=== PATIENT | female | born 1960 | race African-American/Black ===

== ENCOUNTER → 2021-02-04 | Outpatient (CLI) | payer BC ==
--- NOTE | 2021-02-05 13:59 | RAD ---
EXAM: Lateral neutral, lateral flexion and lateral extension views of the lumbar spine DATE: 02/04/2021 12:41 PM INDICATION: Reason: LUMBAR STENOSIS. SPONDYLOLISTHESIS. / Spl. Instructions: FLEX/EXT STANDING. LATER AL SUPINE. / History: COMPARISON: No Prior FINDINGS: Lateral neutral, lateral flexion and lateral extension views of the lumbar spine were submitted for e valuation. Anterolisthesis of L4 on L5 measuring 4 mm on the neutral image, 5 mm on the flexion image and 4 mm on the extension image. Trace anterolisthesis of L5 on S1 measuring 2 mm on the neutral image, 3 mm on the flexion image and 2 mm on the extension image. Degenerative disc disease L4-5 and L5-S1. Associated facet degenerative changes are also seen. IMPRESSION: Anterolisthesis of L4 on L5 and L5 on S1 without dynamic instability. Measurements as above. Electronically signed by: Jacoby Nino MD (02/05/2021 1:57 PM) [id number]
== END ==
LOC: RAD 12:24
PROVIDERS: ATTEND Neurological Surgery
DX: M51.37 Other intervertebral disc degeneration, lumbosacral region (principal); M47.816 Spondylosis without myelopathy or radiculopathy, lumbar region; M43.16 Spondylolisthesis, lumbar region
CPT/HCPCS: 72100

== ENCOUNTER → 2021-02-24 | Outpatient (CLI) | payer BC ==
[~2021-02-24] MED LIST: ERGO500027 PO; FERR-36 PO; GABA300C18 PO; IOHEXOL 180 MG/ML 10 ML VIAL. ONE; MAGN400C PO; OMEG1CAP50 PO; TIZA4TAB2 PO; methylPREDNISolone ACETATE 40 MG/ML VIAL. ONE; methylPREDNISolone ACETATE 80 MG/ML VIAL. ONE; potassium
--- NOTE | 2021-02-24 15:07 | PDOC1 ---
INITIAL PAIN CONSULT DATE OF SERVICE: DOS: DATE: 02/24/21 TIME: 15:01 CHIEF COMPLAINT: Chief Complaint: Low back and bilateral lower extremity pain HISTORY OF PRESENT ILLNESS: 60-year-old female presents history of pain low back bilateral lower extremities for several years worse over the past year or so not the result of any specific injury or accident that she is aware but just building up over time patient reports that the pain is in the low back and the bilateral lower extremities worse on the right than the left the posterior gluteus posterior lateral thigh lateral anterior thigh anteromedial thighs into the medial and lateral calves bilaterally with some [id number] sensation worse on the right than the left worse with walking standing changing positions better with sitting or laying down but does awaken her from sleep at least once or twice a night patient reports the pain is sharp and stabbing in the back throbbing and shooting in the legs with tingling and numbness in the legs well specially on the right side intermittent intensity better with sitting or laying down but again waking her from sleep. Patient ports is aching in the low back as well patient also reports that it does not affect her bowel bladder control but does affect her ability to walk on her leg start to burn with tingling especially on the right. Patient reports no loss of motor function but significant fatigability of the right leg with standing and walking. Patient is had physical therapy and is doing the stretching and strengthening exercises as well from that and they are helpful but not getting the pain down completely. Patient did have a MRI scan of the lumbar spine showing cervical disc bulging annulus at L3-4 also L4-5 showing marked facet hypertrophy and narrowing of the L4-5 space with circumferential bulging annulus abutting the exiting right L4 nerve root and flattening of the ventral thecal sac and narrowing of the neural foramen L5-S1 shows large circumferential bulging annulus with effacement of the ventral thecal sac as well with neuroforaminal stenosis and abutment of displacement of the exiting L5 nerve roots. Patient rates her disability rating 0-10 10 being the worst as a 7 with him home responsibilities 10 with recreational activities 8 with social activity 9 with occupation 6 with sexual behavior 7 with self-care activities and 3 with life support activities. PAST MEDICAL HISTORY: PMH: Osteoporosis, anemia PREVIOUS SURGERIES: Past Surgical Hx: Bilateral rotator cuff repair, partial hysterectomy, right knee replacement, bilateral carpal tunnel replacements, bilateral cataract extractions CURRENT MEDICATIONS: Current Meds: Active Scripts Medications Dose Route/Sig Max Daily Dose Days Date Category Iron (Ferrous Sulfate) 325 Mg Tablet 65 Mg PO DAILY 02/24/21 Reported Fish Oil 1,000 Mg Softgel ([place]-3 Fatty Acids/Fish Oil) 1 Each Capsule 1 Cap PO DAILY 30 02/24/21 Reported Magnesium (Magnesium Oxide) 400 Mg Capsule 1 Cap PO DAILY 30 02/24/21 Reported [potassium] 99 Mcg DAILY 02/24/21 Reported Tizanidine Hcl 4 Mg Tablet 1 Tab PO BID 02/24/21 Reported Vitamin D2 (Ergocalciferol (Vitamin D2)) 1,250 Mcg Capsule 1,250 Mcg PO DAILY 02/24/21 Reported Gabapentin (Gabapentin) 300 Mg Capsule 300 Mg PO TID 02/24/21 Reported ALLERGIES; Allergies: Coded Allergies: No Known Drug Allergies (Unverified , 02/24/21) FAMILY HISTORY: Family Hx: Hypertension, cancers SOCIAL HISTORY: Social Hx: Patient drinks alcohol occasionally does not smoke not use any illegal illicit recreational drugs is single lives locally in [facility] and works at [employer] REVIEW OF SYSTEMS: ROS: Positive for those items mentioned in history of present illness, all systems are reviewed, otherwise negative ,and are complete full and well-documented on patient's chart. PHYSICAL EXAM: VS: Blood pressure is 138/96 pulse 96 respirations 16 temperature 98.1 F height is 5 foot 1 inch, weight is 133 pounds PE: PHYSICAL EXAMINATION: GENERAL: The patient is awake, alert, oriented, appropriate, very pleasant demeanor HEENT: Shows normocephalic, atraumatic. Extraocular movements are intact and symmetrical. Oral cavity: Mucous membranes moist and pink. Dentition is intact. NECK: Shows anterior throat supple without palpable lymphadenopathy noted. Swallow reflex symmetrical. CHEST: Shows normal on inspection. Breath sounds are clear bilaterally, no rales rhonchi wheezes auscultated. HEART: Shows S1, S2 clear. No murmurs auscultated. ABDOMEN: Soft, nontender, nondistended, obese. No palpable organomegaly is noted. No rebound or guarding demonstrated. BACK: Shows spine grossly in the midline. Normal-appearing cervical lordotic curvature. There is slightly increased thoracic kyphosis, some minor flattening of the lumbar lordotic curvature. Lumbar paraspinous muscles show symmetrical on inspection, on palpation shows some moderate tenderness diffusely throughout the upper, middle and lower distribution of the paraspinous muscles bilaterally and also into the lower thoracic paraspinous musculature, firm and tender, but without specific trigger points, without radiation of pain. The patient has good rotational motion of the lumbar spine, both laterally as well as extension and flexion without significant difficulty. No tenderness over the spinous processes, sacrum or sacroiliac regions. EXTREMITIES: Lower extremities show deep tendon reflexes 2+ in the patellar and tendo calcaneus tendons. Motor exam is 4 on a scale of 5 with right dorsiflexion, extension, quadriceps and hamstring flexion and 5/5 on the left. Peripheral pulses are 1+ posterior tibial. No peripheral edema is noted bilaterally. Lower extremities are warm and dry to touch, equal in color and appearance. Straight leg raise noted to be positive on the right about 45 degrees, left side is negative. Gaenslen's and Toni's maneuvers are negative as well. The patient is able to stand, stand on toes without significant difficulty or loss of balance and walks with a normal-appearing gait does not appear to favor the right or left lower extremity significantly not use any assistive devices to ambulate. SKIN: Shows warm and dry, good turgor. No edema. No sores, rashes or bruising throughout. IMPRESSION: Impression: 60-year-old female with long history of low back right greater than left lower extremity pain in a radicular fashion. MRI scan lumbar spine as noted Osteoporosis Plan: Options were discussed with the patient, including conservative medical management physical therapies and interventional techniques. Patient would like to pursue interventional techniques. We discussed a lumbar epidural steroid injection using description as well as anatomical models to describe the procedure. Risks were discussed including but not limited to: Bleeding, infection, possibility of epidural hematoma and subsequent neurological compromise, dural puncture, headaches, spinal cord and/or nerve damage, side effects of steroid medication, and poor results regarding pain control. Patient understands and wished to proceed. Patient will return to clinic in approximate 3 weeks for follow-up, was counseled as return appointment activity level and side effects to be aware of. Procedure is lumbar epidural steroid injection under local anesthetic using sterile prep and drape at the L4-5 level using C-arm fluoroscopic guidance in both AP and lateral views medications injected is 120 mg Depo-Medrol + 10 mL preservative-free normal saline and 2 mL contrast- condition at discharge is stable patient tolerated procedure well had no complications. KODI MINAYA MD Feb 24, 2021 15:07
== END | disposition home or self-care (01) ==
LOC: PNCL 13:28
PROVIDERS: ATTEND Anesthesiology
DX: M54.5 Low back pain (principal); M79.605 Pain in left leg; M79.604 Pain in right leg; M81.0 Age-related osteoporosis without current pathological fracture; D64.9 Anemia, unspecified; Z90.710 Acquired absence of both cervix and uterus; Z98.890 Other specified postprocedural states; Z79.899 Other long term (current) drug therapy
CPT/HCPCS: 62323; J1030; J1040; Q9965

== ENCOUNTER → 2021-03-31 | Outpatient (CLI) | payer BC ==
--- NOTE | 2021-03-31 14:31 | PDOC ---
Progress Note - Pain Clinic Date of Service: DOS: DATE: 03/31/21 TIME: 14:28 Diagnosis: Dx: Lumbar radiculopathy with lumbar degenerative disc disease and lumbar spinal stenosis History or Present Illness: HPI: 60-year-old female returns for follow-up status post lumbar epidural steroid injection x1 on February 24, 2021. Patient reports she did very well after the first injection about 50% improvement overall pain was returning after about 2- 1/2 weeks or so the pain is now in the low back bilateral lower extremities somewhat worse on the right than the left rating the posterior gluteus posterior lateral thigh lateral anterior thigh anteromedial thighs lateral calves as well as the medial calves bilaterally patient reports is essentially the same right and left with the lower legs but worse on the right in the back and right gluteus and thigh. Patient scribes pain is tingling and burning aching sharp s hooting can be constant radiating can be severe unbearable at times with walking and standing initially she was in much better with distance walking doing household activities work activities travel with greater ease and comfort sleeping better at night now is beginning to wake her up about every 3 hours or so, over the past 2 weeks or so. Patient reports no new motor or sensory d eficits no new bowel or bladder incontinence. Physical Exam: VS: Blood pressure is 138/92 pulse 105 respirations 18 temperature 98.0 F height is 5 foot 1 his weight is 137 pounds PE: PHYSICAL EXAMINATION: GENERAL: The patient is awake, alert, oriented, appropriate, very pleasant demeanor HEENT: Shows normocephalic, atraumatic. Extraocular movements are intact and symmetrical. Oral cavity: Mucous membranes moist and pink. NECK: Shows anterior throat supple without palpable lymphadenopathy noted. Swallow reflex symmetrical. CHEST: Shows normal on inspection. Breath sounds are clear bilaterally, no rales or rhonchi. HEART: Shows S1, S2 clear. No murmurs auscultated. ABDOMEN: Soft, nontender, nondistended. No palpable organomegaly is noted. No rebound or guarding demonstrated. BACK: Shows spine grossly in the midline. Normal-appearing cervical lordotic curvature. There is slightly increased thoracic kyphosis, some minor flattening of the lumbar lordotic curvature. Lumbar paraspinous muscles show symmetrical on inspection, on palpation shows some moderate tenderness diffusely throughout the upper, middle and lower distribution of the paraspinous muscles without specific trigger points, without radiation of pain. The patient has good rotational motion of the lumbar spine, both laterally as well as extension and flexion without significant difficulty. EXTREMITIES: Lower extremities show deep tendon reflexes 2+ in the patellar and tendo calcaneus tendons. Motor exam is 4 on a scale of 5 with right dorsiflexion, extension, quadriceps and hamstring flexion and 5/5 on the left. Peripheral pulses are 1+ posterior tibial. No peripheral edema is noted bilaterally. Lower extremities are warm and dry to touch, equal in color and appearance. SKIN: Shows warm and dry, good turgor. No edema. No sores, rashes or bruising throughout. Procedure: Procedure: Options were discussed with the patient. Patient's old chart was reviewed as her current medication regimen updated current review of systems updated today as well. We will proceed with a second lumbar epidural steroid injection today with fluoroscopic guidance. Risks were discussed including but not limited to: Bleeding, infection, possibility of epidural hematoma and subsequent neurological compromise, dural puncture, headaches, spinal cord and/or nerve damage, side effects of steroid medication, and poor results regarding pain control. Patient understands and wished to proceed. Patient will return to the clinic in approximately 2 weeks for follow-up, was counseled as to return appointment activity level and side effects to be aware of. Medication Injected: Med Injected: Procedure is lumbar epidural steroid injection under local anesthetic using sterile prep and drape at the L4-5 level using C-arm fluoroscopic guidance in both AP and lateral views medications injected is 120 mg Depo-Medrol +10mL preservative-free normal saline and 2 mL contrast- condition at discharge is stable patient tolerated procedure well had no complications. Condition at Discharge: Condition at Discharge: Condition at discharge stable, patient tolerated the procedure well and had no complications. KODI MINAYA MD Mar 31, 2021 14:31
== END | disposition home or self-care (01) ==
LOC: PNCL 13:38
PROVIDERS: ATTEND Anesthesiology
DX: M51.16 Intervertebral disc disorders with radiculopathy, lumbar region (principal); M48.061 Spinal stenosis, lumbar region without neurogenic claudication; M81.0 Age-related osteoporosis without current pathological fracture; D64.9 Anemia, unspecified; Z90.710 Acquired absence of both cervix and uterus; Z79.899 Other long term (current) drug therapy; Z98.890 Other specified postprocedural states
CPT/HCPCS: 62323; J1030; J1040; Q9965